=== PATIENT | female | born 1945 | race Caucasian/White ===

== ENCOUNTER → 2021-06-19 08:54 | Outpatient (CLI) | payer MEDICARE, SELFPAY ==
--- NOTE | 2021-06-19 | DI.RAD.S_ITS ---
PROCEDURE: XR LUMBAR SPINE 2-3V INDICATIONS: M54.16 Radiculopathy TECHNIQUE: 2 views of the lumbar spine were acquired. COMPARISON: None. FINDINGS: Bones: 5 [id number] vertebrae are present. Anterolisthesis of L5 on S1 measuring 0.5 cm. Minimal scoliosis. Multilevel degenerative disc disease. Small vertebral body osteophytes. No vertebral body compression fractures. No suspicious bony lesions. Bones appear osteopenic. Soft tissues: Overlying bowel gas pattern is normal. No suspicious soft tissue calcifications. IMPRESSION: Grade 1 anterolisthesis of L5 on S1. Multilevel DDD. Bones appear osteopenic. No compression fracture. Dictated by: Florentino Fernandez M.D. on 06/19/2021 at 10:35 Approved by: Florentino Fernandez M.D. on 06/19/2021 at 10:37
== END ==
PROVIDERS: PCP Physician Assistant; Referring Provider Physician Assistant; Visit Provider Physician Assistant
DX: M51.16 Intervertebral disc disorders with radiculopathy, lumbar region (principal); M43.17 Spondylolisthesis, lumbosacral region
CPT/HCPCS: 72100